=== PATIENT | male | born 1950 ===

== ENCOUNTER 2022-03-12 10:15 | Inpatient (IN) | payer OTHER ==
[~2022-03-12] VITALS: Ht 172.7 cm; Wt 113.4 kg
[2022-03-12] MEDS ORDERED: COZAAR100 MG PO (12:48)
[2022-03-12] MEDS ORDERED: TOPROL XL100 M1 PO (12:48)
[2022-03-12] MEDS ORDERED: METFORMIN HCL500 M3 PO (12:48)
[2022-03-12] MEDS ORDERED: XARELTO20 MG PO (12:48)
[2022-03-17] MEDS ORDERED: PANTOPRAZOLE SO40 MG (15:25)
[2022-03-17] MEDS ORDERED: HYDROCHLOROTHIA25 MG (15:25)
[2022-03-17] MEDS ORDERED: ATORVASTATIN CA20 MG (15:25)
== END 2022-03-19 16:24 | disposition home or self-care (01) | DRG 470 ==
LOC: SURH 03-17 10:15 → O/R 03-17 10:39 → SURH 03-17 11:00 → SURG 03-17 22:14 → SURH 03-18 21:22
PROVIDERS: ADMIT Orthopaedic Surgery; ATTEND Orthopaedic Surgery
PROC: 0SRD0J9 Replacement of Left Knee Joint with Synthetic Substitute, Cemented, Open Approach (ICD-10-PCS; principal; 2022-03-17 11:00)
DX: M17.12 Unilateral primary osteoarthritis, left knee (principal); D62 Acute posthemorrhagic anemia; Z20.822 Contact with and (suspected) exposure to COVID-19; I10 Essential (primary) hypertension; E11.9 Type 2 diabetes mellitus without complications; E66.8 Other obesity

== ENCOUNTER 2022-07-17 08:51 | Outpatient (CLI) | payer OTHER ==
[~2022-07-17 08:51] MED LIST: ATORVASTATIN CA20 MG; COZAAR100 MG PO; HYDROCHLOROTHIA25 MG; METFORMIN HCL500 M3 PO; PANTOPRAZOLE SO40 MG; TOPROL XL100 M1 PO; XARELTO20 MG PO
== END 2022-07-17 08:52 | disposition home or self-care (01) ==
LOC: RAD 08:51
PROVIDERS: ATTEND Orthopaedic Surgery
DX: M25.561 Pain in right knee (principal)

== ENCOUNTER 2022-07-17 11:15 | Inpatient (IN) | payer OTHER ==
[~2022-07-17] VITALS: Ht 172.7 cm; Wt 108.9 kg
[2022-07-22] MEDS ORDERED: ABANEU-SL TABL1 EACH (10:07)
[2022-07-22] MEDS ORDERED: INTEGRA PLUS C1 EACH (10:07)
== END 2022-07-24 12:26 | DRG 470 ==
LOC: SURG 07-21 08:14 → O/R 07-21 08:14 → SURG 07-21 10:30
PROVIDERS: ADMIT Orthopaedic Surgery; ATTEND Orthopaedic Surgery
PROC: 0SRC0J9 Replacement of Right Knee Joint with Synthetic Substitute, Cemented, Open Approach (ICD-10-PCS; principal; 2022-07-21 10:30)
DX: M17.11 Unilateral primary osteoarthritis, right knee (principal); D62 Acute posthemorrhagic anemia; M85.661 Other cyst of bone, right lower leg; I10 Essential (primary) hypertension; E11.9 Type 2 diabetes mellitus without complications; Z20.822 Contact with and (suspected) exposure to COVID-19